=== PATIENT | female | born 1940 | race Caucasian/White ===

== ENCOUNTER 2021-11-06 17:28 | Observation (INO) | payer MEDICARE, SELFPAY ==
[2021-11-06 17:35] VITALS: BP 115/67; PULSE 114; RESP 18; TEMP 36.3; O2SAT 97; BMI 29.9
--- NOTE | 2021-11-06 18:11 | ED_ITS ---
HPI - General Adult General Chief complaint: Diarrhea Stated complaint: Weakness and diarrhea Time Seen by Provider: 11/06/21 17:52 Source: patient Limitations: no limitations History of Present Illness HPI narrative: 80-year-old female coming in today concerned about diarrhea. She states that she lives by herself however has been staying at a friend's house for the last couple days. She states that she started having diarrhea this last Wednesday, 2 days ago, and it has been nonstop. She states that she got weak today and has not even been able to get out of bed to make it to the bathroom. She states that she has spent the day soiling herself. She denies fevers or chills. No nausea or vomiting. She denies cough. She says she has some abdominal cramping but no significant pain. She denies any blood in her stool. She denies any increased urinary frequency or urgency. States that she has been able to get much food today because she has been able to get out of bed and has not really been drinking lot of water although she does feel thirsty. She denies any recent antibiotic use. Related Data Home Medications Medication Instructions Recorded Confirmed Spiriva with HandiHaler 11/06/21 alendronate 11/06/21 atorvastatin 11/06/21 bupropion HCl 11/06/21 losartan 11/06/21 trazodone 11/06/21 venlafaxine 11/06/21 [facility] Social History Smoking Status: Never smoker Do you use any of these nicotine containing products: None Second hand tobacco smoke exposure: No How often do you have a drink containing alcohol: never How often do you have six or more drinks on one occasion: Never AUDIT-C Alcohol total score: 0 Non-prescribed substance use: denies use Exam Const: Vital Signs, click to edit/add: Vital Signs - 24 hr 11/06/21 17:35 Temperature 97.4 F L Pulse Rate [Right Pulse Oximeter] 114 H Respiratory Rate 18 Blood Pressure [Ri ght Forearm] 115/67 Pulse Oximetry 97 Oxygen Delivery Me thod Room Air Course Course Hospital Course: Patient received 500 mL normal saline in the ambulance. We started another 500 mL while she was here. Labs were drawn. EKG was done, no significant ST changes. She did not have diarrhea while she was in the ED today. Vital Signs Vital signs: Initial Vital Signs Temperature 97.4 F L 11/06/21 17:35 Temperature Source Temporal Artery Scan 11/06/21 17:35 Pulse Rate 114 H 11/06/21 17:35 Respiratory Rate 18 11/06/21 17:35 Blood Pressure 115/67 11/06/21 17:35 Blood Pressure Mean 83 11/06/21 17:35 Blood Pressure Position Sitting 11/06/21 17:35 Pulse Oximetry 97 11/06/21 17:35 Oxygen Delivery Method 11/06/21 17:35 Vital Signs Temperature 97.4 F L 11/06/21 17:35 Pulse Rate 114 H 11/06/21 17:35 Respiratory Rate 18 11/06/21 17:35 Blood Pressure 115/67 11/06/21 17:35 Pulse Oximetry 97 11/06/21 17:35 Oxygen Delivery Method 11/06/21 17:35 Temperature 97.4 F L 11/06/21 17:35 Pulse Rate 114 H 11/06/21 17:35 Respiratory Rate 18 11/06/21 17:35 Blood Pressure 115/67 11/06/21 17:35 Pulse Oximetry 97 11/06/21 17:35 Oxygen Delivery Method 11/06/21 17:35 Medical Decision Making MDM Narrative Medical decision making narrative: 80-year-old female with 2 days of diarrhea, inability to get up and take care herself, acute renal failure. Patient will be admitted for further management. Lab Data Lab results reviewed: Yes I reviewed the patient's lab results Labs: Lab Results 11/06/21 11/06/21 11/06/21 Range/Units 18:32 18:32 18:32 WBC 9.83 (4.50-11.00) K/uL RBC 4.50 (4.00-5.20) m/uL Hgb 13.9 (12.0-16.0) gm/dL Hct 42.0 (33.0-51.0) % MCV 93 (80-100) fL MCH 31 (26-34) pg MCHC 33 (32-36) gm/dL RDW Coeff of Ariel 15.0 (11.5-15.5) % Plt Count 210 (140-440) K/uL Neut % (Auto) 83.0 H (42.0-72.0) % Lymph % (Auto) 5.9 L (20-44) % Phillips % (Auto) 10.3 (0.0-11.0) % Eos % (Auto) 0.3 (0.0-7.0) % Baso % (Auto) 0.1 (0.0-3.0) % Neut # (Auto) 8.20 H (1.7-7.0) K/uL Lymph # (Auto) 0.60 L (0.90-2.90) K/uL Phillips # (Auto) 1.00 H (0.00-0.90) K/UL Eos # (Auto) 0.03 (0.00-0.50) K/uL Baso # (Auto) 0.01 (0.00-0.30) K/uL Abs Immat Gran (auto) 0.04 (0.00-0.30) K/uL Sodium 138 (135-149) mmol/L Potassium 4.1 (3.6-5.1) mmol/L Chloride 106 (96-114) mmol/L Carbon Dioxide 17 L (20-32) mmol/L BUN 68 H (7-30) mg/dL Creatinine 1.8 H (0.5-1.5) mg/dL Estimated Creat Clear 22.95 Estimated GFR 28 ml/min Glucose 134 H (60-115) mg/dL Lactate 1.7 (0.5-1.9) mmol/L Calcium 7.3 L (8.4-10.6) mg/dL Total Bilirubin 0.8 (0.1-1.5) mg/dL Direct Bilirubin 0.5 (0.0-0.5) mg/dL AST 34 (12-35) U/L ALT 24 (4-35) U/L Alkaline Phosphatase 93 (40-150) U/L Troponin I < 0.01 L (0.01-0.04) ng/mL C-Reactive Protein 17.0 H (0.5-1.0) mg/dL Total Protein 6.5 (6.0-8.3) g/dL Albumin 3.6 (3.3-5.0) g/dL Ethyl Alcohol < 0.01 L (0.01-0.03) % 11/06/21 Range/Units 18:32 WBC (4.50-11.00) K/uL RBC (4.00-5.20) m/uL Hgb (12.0-16.0) gm/dL Hct (33.0-51.0) % MCV (80-100) fL MCH (26-34) pg MCHC (32-36) gm/dL RDW Coeff of Ariel (11.5-15.5) % Plt Count (140-440) K/uL Neut % (Auto) (42.0-72.0) % Lymph % (Auto) (20-44) % Phillips % (Auto) (0.0-11.0) % Eos % (Auto) (0.0-7.0) % Baso % (Auto) (0.0-3.0) % Neut # (Auto) (1.7-7.0) K/uL Lymph # (Auto) (0.90-2.90) K/uL Phillips # (Auto) (0.00-0.90) K/UL Eos # (Auto) (0.00-0.50) K/uL Baso # (Auto) (0.00-0.30) K/uL Abs Immat Gran (auto) (0.00-0.30) K/uL Sodium (135-149) mmol/L Potassium (3.6-5.1) mmol/L Chloride (96-114) mmol/L Carbon Dioxide (20-32) mmol/L BUN (7-30) mg/dL Creatinine (0.5-1.5) mg/dL Estimated Creat Clear Estimated GFR ml/min Glucose (60-115) mg/dL Lactate (0.5-1.9) mmol/L Calcium (8.4-10.6) mg/dL Total Bilirubin (0.1-1.5) mg/dL Direct Bilirubin (0.0-0.5) mg/dL AST (12-35) U/L ALT (4-35) U/L Alkaline Phosphatase (40-150) U/L Troponin I Cancelled (0.01-0.04) ng/mL C-Reactive Protein (0.5-1.0) mg/dL Total Protein (6.0-8.3) g/dL Albumin (3.3-5.0) g/dL Ethyl Alcohol (0.01-0.03) % ECG Data Attestation: I personally reviewed and interpreted this ECG as follows: (Sinus tachycardia, pulse of 102) Discharge Plan Discharge Clinical Impression: Acute renal failure, Weakness Patient Disposition: Admitted As Inpatient Condition: Stable Prescriptions: No Action atorvastatin bupropion HCl trazodone venlafaxine alendronate Spiriva with HandiHaler losartan
[2021-11-06 18:43] LABS: Basophils Absolute Auto 0.01 K/uL (0.00-0.30); Basophils Percent Auto 0.1 % (0.0-3.0); Eosinophils Absolute Auto 0.03 K/uL (0.00-0.50); Eosinophils Percent Auto 0.3 % (0.0-7.0); Hemoglobin* 13.9 gm/dL (12.0-16.0); Immature Granulocytes Abs Auto 0.04 K/uL (0.00-0.30); Lactate* 1.7 mmol/L (0.5-1.9); Lymphocytes Percent Auto 5.9 % (20-44); Mean Corpuscular HGB Conc 33 gm/dL (32-36); Mean Corpuscular Hemoglobin 31 pg (26-34); Mean Corpuscular Volume 93 fL (80-100); Monocytes Percent Auto 10.3 % (0.0-11.0); Platelet Count* 210 K/uL (140-440); White Blood Count* 9.83 K/uL (4.50-11.00)
[2021-11-06 18:46] LABS: Slide Review Reflex No
[2021-11-06] MEDS: 0.9 % SODIUM CHLORIDE 500 ML 500 ML IV (18:50)
[2021-11-06 19:05] LABS: Albumin* 3.6 g/dL (3.3-5.0); Chloride* 106 mmol/L (96-114)
[2021-11-06 19:06] LABS: Potassium* 4.1 mmol/L (3.6-5.1); Sodium* 138 mmol/L (135-149)
[2021-11-06 19:08] LABS: Creatinine* 1.8 mg/dL (0.5-1.5); Est. Creatinine Clearance* 22.95; Estimated Glomerular Filt Rate 28 ml/min
[2021-11-06 19:09] LABS: Alanine Aminotransferase* 24 U/L (4-35); Alkaline Phosphatase* 93 U/L (40-150); Aspartate Amino Transferase* 34 U/L (12-35); Bilirubin Direct* 0.5 mg/dL (0.0-0.5); Bilirubin Total* 0.8 mg/dL (0.1-1.5); Blood Urea Nitrogen* 68 mg/dL (7-30); Calcium* 7.3 mg/dL (8.4-10.6); Carbon Dioxide* 17 mmol/L (20-32); Glucose* 134 mg/dL (60-115); Total Protein* 6.5 g/dL (6.0-8.3)
[2021-11-06 19:14] LABS: Ethanol* < 0.01 % (0.01-0.03)
[2021-11-06 19:22] LABS: Troponin I* < 0.01 ng/mL (0.01-0.04)
--- NOTE | 2021-11-06 19:54 | CRLHL7_ITS ---
For Patients: As a result of the Century Cures Act, medical imaging exams and procedure reports are released immediately into your electronic medical record. You may view this report before your referring provider. If you have questions, please contact your health care provider. INDICATION: Diarrhea. TECHNIQUE: CT abdomen and pelvis without contrast. COMPARISON: None. FINDINGS: Lower chest: Unremarkable. Liver: Normal in size and attenuation. No suspicious masses. Gallbladder and bile ducts: Absent. No significant intra or extrahepatic biliary ductal dilatation identified. Pancreas: Unremarkable. No mass or inflammation. Spleen: Normal in size. No masses. Adrenal glands: Normal in size. No nodules. Kidneys: Normal in size. No suspicious masses, stones, or hydronephrosis. GI tract: Mild thickening along the large bowel with adjacent areas of mild mesenteric fat stranding. Appendix is not well visualized. Small hiatal hernia. Vasculature: Abdominal aorta is normal in caliber. Aorto bi-iliac stents are noted. Calcific atherosclerosis and to a moderate to severe degree in the distal aorta and its major branches. Lymph nodes: No lymphadenopathy. Peritoneum/Abdominal Wall: Probable postsurgical changes in the anterior abdominal wall. There is a loop of small bowel closely apposed to the anterior abdominal wall may be related to adhesions. Focal calcifications in the anterior abdominal wall (2/45), likely posttraumatic or post operative. No sign of mass or infiltration. No free air or significant free fluid. Pelvis: Prior hysterectomy. No pelvic masses. Bones: Demineralization of visualized bones. Multilevel degenerative changes. IMPRESSION: Diffuse mild wall thickening in the large bowel with adjacent areas of mild mesenteric fat stranding suggestive of infectious/inflammatory colitis. Ischemia could appear similar although felt to be less likely. Please note that all CT scans at this facility use dose modulation, iterative reconstruction, and/or weight-based dosing when appropriate to reduce radiation dose to as low as reasonably achievable. Dictated by Gaetano Llamas MD @ 11/06/2021 8:50:32 PM (Electronically Signed)
[2021-11-06 20:17] LABS: Erythrocyte SedimentationRate* 52 mm/hr (2-20)
--- NOTE | 2021-11-06 20:19 | P.IMHP_ITS ---
Hospitalist- H&P: HPI History of Present Illness Date Seen: 11/06/21 Chief complaint: Weakness and diarrhea Narrative: ADMISSION HISTORY AND PHYSICAL - HOSPITALIST Chief Complaint: Diarrhea came on intense, I am so weak HPI: 80-year-old with a complex medical history to include CAD, COPD presents via EMS from her friend's house near [place] secondary to explosive diarrhea and weakness. She states about 48 hours ago she started having which she thought was IBS/loose stools. She has had this progressed and she became very weak. She is having some mild left lower quadrant cramping. She does not think she has been febrile. She has had no appetite. She has only vomited once. In the ED she was coherent. Mildly tachy. No fever. She was caked in stool and mildly unkept. She was started on fluids and noted to have an ALLISON on her baseline CKD. Hospital medicine team was called for evaluation. PAST MEDICAL HISTORY: Hypertension CAD - last echo showed normal global systolic function with EF of 60-65%. Mitral valve disease, mild. 3.6 cm AAA. COPD, severe Dyslipidemia Untreated MAKI Non ST-elevation OK with multi-vessel stenting June 2016. EMMETT to mid LAD, EMMETT x2 to mid circumflex, EMMETT to proximal RCA, EMMETT to mid RCA. Balloon only to distal RCA due to tortuosity. History of acute systolic heart failure Severe mitral regurg Chronic kidney disease Diabetes mellitus History of orthostatics syncope with cardiac meds being titrated History of COVID-19 pneumonia with hypoxia in March of 2021 MEDICATIONS: Lipitor 80 mg at bedtime Losartan 50 mg q.a.m. Metoprolol XL 25 mg daily Nitro 0.4 p.r.n. sublingually ALLERGIES: Lisinopril Omeprazole Simvastatin Heparin - cause hematuria SURGICAL HISTORY: GILBERT/BSO Tonsils and adenoids cataract removal AAA repair FAMILY HISTORY: Reviewed in EMR HABITS/SOCIAL HISTORY: Former heavy smoker, 2 packs a day until the mid . 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 No adult children. Has a friend who lives near [place]. Otherwise she is from [place]. INVESTIGATIONS: LABS/MICRO/ECG/IMAGING Afebrile Blood pressure 115/67 Pulse 114 Respiratory rate 18 satting 97% on room air CBC is unremarkable. Creatinine is 1.8, BUN 68. In August it was 1.53 with a BUN of 39 Mildly acidotic with a CO2 of 17. Normal sodium. Normal potassium. Glucose 134 Lactate 1.7 Calcium 7.3 Normal LFTs Troponin undetectable CRP 17 Alcohol undetectable Respiratory swab negative Abdominal pelvic CT: IMPRESSION: Diffuse mild wall thickening in the large bowel with adjacent areas of mild mesenteric fat stranding suggestive of infectious/inflammatory colitis. Ischemia could appear similar although felt to be less likely. REVIEW OF SYSTEMS: 12-point ROS completed with patient and negative unless otherwise stated in HPI or below. PHYSICAL EXAM: CODE STATUS: FULL CODE CONSTITUTIONAL: Conversive, good historian. A/O. Knows setting and context. SHE LOOKS WEAK BUT NOT SEPTIC. VITAL SIGNS: see record. HEENT: Normocephalic, atraumatic. PERRL, EOMI, conjunctivae pink, no scleral icterus. Ears and nose externally normal. Pharynx normal. NECK: No JVD. No carotid bruit, no thyromegaly, no adenopathy. CHEST: Clear to auscultation bilaterally HEART: S1 and S2 normal. No harsh murmurs. Abdominal exam: Soft. Mildly tender in left lower quadrant. MUSCULOSKELETAL: No gross joint deformity or swelling. NEURO: Cranial nerves intact. Grossly intact. No asymmetric findings. SKIN: No rashes, petechiae, concerning changes PSYCHIATRIC: Euthymic. ADMIT DVT: Lovenox GI: PO intake, ppi Time spent: 70 minutes examining patient, conferring with family and patient, care staff, developing care plan [facility] Medical History (Updated 11/06/21 @ 22:07 by Yahaira Smith MD) CAD (coronary artery disease) Cataract Chronic kidney disease COPD (chronic obstructive pulmonary disease) Hypertension Macular degeneration MAKI (obstructive sleep apnea) Surgical History (Updated 11/06/21 @ 20:48 by Yahaira Smith MD) History of AAA (abdominal aortic aneurysm) repair History of abdominal hysterectomy History of tonsillectomy and adenoidectomy Social History Highest level of school completed/degree received: decline to answer Smoking Status: Former smoker Do you use any of these nicotine containing products: None Nicotine containing products detail: quit 30 years ago Second hand tobacco smoke exposure: No How often do you have a drink containing alcohol: monthly or less How often do you have six or more drinks on one occasion: Never AUDIT-C Alcohol total score: 1 Non-prescribed substance use: denies use Caffeine: Yes (1 16oz pop per day) service: No Meds Home Medications and Allergies Home Medications Medication Instructions Recorded Confirmed Type Spiriva with HandiHaler 11/06/21 History alendronate 11/06/21 History atorvastatin 11/06/21 History bupropion HCl 11/06/21 History losartan 11/06/21 History trazodone 11/06/21 History venlafaxine 11/06/21 History Allergies Allergy/AdvReac Type Severity Reaction Status Date / Time Heparinoids Allergy Mild Hematuria Uncoded 11/06/21 21:01 Simvastatin Allergy Mild Nausea Uncoded 11/06/21 21:01 Lisinopril Allergy Cough Uncoded 11/06/21 21:01 Omeprazole Allergy Diarrhea Uncoded 11/06/21 21:01 Exam Const: Vital Signs, click to edit/add: Vital Signs - 24 hr 11/06/21 17:35 Temperature 97.4 F L Pulse Rate [Right Pulse Oximeter] 114 H Respiratory Rate 18 Blood Pressure [Ri ght Forearm] 115/67 Pulse Oximetry 97 Oxygen Delivery Me thod Room Air Hospitalist - H&P: Result Labs Labs: Short CBC 11/06/21 Range/Units 18:32 WBC 9.83 (4.50-11.00) K/uL Hgb 13.9 (12.0-16.0) gm/dL Hct 42.0 (33.0-51.0) % Plt Count 210 (140-440) K/uL BMP 11/06/21 18:32 Sodium 138 Potassium 4.1 Chloride 106 Carbon Dioxide 17 L BUN 68 H Creatinine 1.8 H Glucose 134 H Calcium 7.3 L Cardiac Enzymes 11/06/21 11/06/21 Range/Units 18:32 18:32 Troponin I < 0.01 L Cancelled (0.01-0.04) ng/mL Liver Function 11/06/21 Range/Units 18:32 Total Bilirubin 0.8 (0.1-1.5) mg/dL Direct Bilirubin 0.5 (0.0-0.5) mg/dL AST 34 (12-35) U/L ALT 24 (4-35) U/L Alkaline Phosphatase 93 (40-150) U/L Albumin 3.6 (3.3-5.0) g/dL Assessment and Plan Assessment and plan (1) Acute gastroenteritis: Status: Acute Assessment and Plan: Incontinent of explosive diarrhea. C diff pending. Stool viral and bacterial cultures pending. CT abdomen shows enteritis. Lactate normal. Elevated creatinine from baseline. Will give fluids and observe. ertapenem; solumedrol. (2) ALLISON (acute kidney injury): Status: Acute Assessment and Plan: 1.8 tonight. 1.5 is her baseline. I will check a magnesium but other electrolytes seem to be in line. (3) CAD (coronary artery disease): Status: Acute Assessment and Plan: Significant multi-vessel disease. Troponin negative. Will put her on tele and continue to monitor. (4) Chronic kidney disease: Status: Acute Assessment and Plan: Secondary to chronic hypertension. (5) COPD (chronic obstructive pulmonary disease): Status: Acute Assessment and Plan: Distant smoking but heavy for the years that she did smoke. Continue to follow. (6) Hypertension: Status: Acute Assessment and Plan: Be careful with her meds that she is on the low side but not hypotensive. (7) MAKI (obstructive sleep apnea): Status: Acute Assessment and Plan: Untreated. We will carefully monitor her oxygen needs. (8) Macular degeneration: Status: Acute
[2021-11-06 20:47] LABS: PCR FLU A Negative PCR FLU A (Negative); PCR FLU B Negative PCR FLU B (Negative)
--- NOTE | 2021-11-06 20:53 | ED.NURSE ---
Per , okay to hold off on UA d/t pt being soiled w/ stool. Ruthie-care performed w/ wipes and wet wash cloths. Stool observed on pt's feet, legs, and forehead. Per pt, she has been in bed for two days and unable to get around. Is normally independent and ambulatory at baseline.
[2021-11-06 21:00] VITALS: BP 112/77; PULSE 119; RESP 20; O2SAT 94
[2021-11-06 21:31] LABS: Magnesium* 2.8 mg/dL (1.5-2.6)
[2021-11-06 21:49] LABS: Appearance Urine Cloudy (Clear); Bilirubin Urine Negative (Negative); Blood Urine 2+ (Negative); Color Urine Brown (Yellow); Glucose Urine Negative (Negative); Ketones Urine 1+ (Negative); Leukocyte Esterase Urine Trace (Negative); Nitrite Urine Negative (Negative); Protein Urine 3+ (Negative); Specific Gravity Urine 1.015 (1.000-1.030); pH Urine 8.5 (5.0-8.5)
[2021-11-06 21:52] VITALS: BP 105/62; PULSE 109; RESP 18; TEMP 36.5; O2SAT 91; O2SAT 92; BMI 28.6
[2021-11-06 21:58] LABS: Amorphous Sediment Urine Moderate; Bacteria Urine Moderate; Squamous Epithelial Cell Urine Moderate (None-Few)
[2021-11-06 23:00] VITALS: BP 135/63; PULSE 101; RESP 20; TEMP 36.6; O2SAT 99
[2021-11-06 23:16] LABS: SARS PCR* Negative SARS-CoV-2 (Negative)
[2021-11-06] MEDS: 0.9 % SODIUM CHLORIDE 1000 ml 1,000 ML 100 ML IV (23:24)
[2021-11-06] MEDS: METHYLPREDNISOLONE SOD SUCC 62.5 MG/ML (125) 125 MG IVP (23:25)
[2021-11-06] MEDS: ENOXAPARIN 30 MG/0.3ML INJ SUBCUT (23:25)
[2021-11-06] MEDS: PANTOPRAZOLE SODIUM 40 MG INJ IVP (23:25)
[2021-11-07] VITALS (9 sets, daily range): BP systolic 129–161; BP diastolic 63–92; PULSE 97–108; RESP 16–20; TEMP 36.4–36.8; O2SAT 97–98
[2021-11-07] MEDS: MELATONIN 3 MG TABLET PO (01:27)
--- NOTE | 2021-11-07 06:45 | PC.NURSE ---
Shift note: Pt denies pain, is afebrile. Turn and reposition in bed, pt is incontinent of stool and bladder, had 1 BM in the last 12 hours. She uses call light appropriately.
[2021-11-07 07:07] LABS: C.Difficile Negative (Negative); CDIFFEPI 027 PRESUMPTIVE NEGATIVE (Negative)
[2021-11-07] MEDS: buPROPion XL 150 MG TABLET PO (09:26)
--- NOTE | 2021-11-07 13:16 | P.IMPN_ITS ---
Progress Note: A&P Assessment and plan (1) Enteritis: Status: Acute Assessment and Plan: She is afebrile. I have reviewed the CT abdomen and pelvis results. Diarrhea improving. Remains mildly tender in the left lower quadrant. C diff negative. Stop antibiotics and Solu-Medrol. May be able to discharge tomorrow as weakness and ALLISON resolve. (2) ALLISON (acute kidney injury): Problem details: Secondary to dehydration Status: Acute Assessment and Plan: Drinking fluids and urine output has increased. Stop IV fluids. Recheck basic metabolic panel in morning. (3) Weakness: Status: Acute Assessment and Plan: Continue PT and OT. Expect this will improve as dehydration improves. (4) CAD (coronary artery disease): Status: Chronic Assessment and Plan: Asymptomatic. (5) Chronic kidney disease: Status: Chronic (6) COPD (chronic obstructive pulmonary disease): Status: Chronic (7) Hypertension: Status: Chronic (8) MAKI (obstructive sleep apnea): Status: Chronic Subjective Time Seen by Provider: 13:15 Date Seen: 11/07/21 Interval history: Gladys's nurse tells me Gladys has had fewer BMs today. Gladys notes she is less painful in the LLQ, but doesn't feel back to normal yet. Exam Narrative: Exam Narrative: General: No acute distress. Awake, alert, oriented x3. No pallor. No jaundice. Oropharynx: Clear. Mucous membranes moist. Cardiovascular: Regular rate and rhythm. No murmurs, gallops, or rubs. Respiratory: Clear to auscultation bilaterally. No wheezes or crackles. Abdomen: Bowel sounds present. Soft, nondistended, mildly tender in left lower quadrant, no rebound tenderness or guarding. Extremities: No pedal edema. Const: Vital Signs, click to edit/add: Vital Signs - 24 hr 11/06/21 17:35 11/06/21 21:00 11/06/21 21:52 Temperature 97.4 F L 97.7 F Pulse Rate Pulse Rate [Right Pulse Oximeter] 114 H 119 H 109 H Respiratory Rate 18 20 18 Blood Pressure [Le ft Arm] Blood Pressure [Ri ght Arm] 105/62 Blood Pressure [Ri ght Forearm] 115/67 112/77 Pulse Oximetry 97 94 91 Oxygen Delivery Me thod Room Air Room Air Room Air 11/06/21 21:52 11/06/21 21:52 11/06/21 23:00 Temperature 97.7 F Pulse Rate Pulse Rate [Right Pulse Oximeter] 109 H Respiratory Rate 18 Blood Pressure [Le ft Arm] Blood Pressure [Ri ght Arm] 105/62 Blood Pressure [Ri ght Forearm] Pulse Oximetry 92 91 99 Oxygen Delivery Me thod Room Air Room Air Room Air 11/06/21 23:00 11/07/21 02:19 11/07/21 03:00 Temperature 98 F 98.2 F Pulse Rate 97 Pulse Rate [Right Pulse Oximeter] 101 H 104 H Respiratory Rate 20 18 Blood Pressure [Le ft Arm] Blood Pressure [Ri ght Arm] 135/63 131/63 Blood Pressure [Ri ght Forearm] Pulse Oximetry [address] thod Room Air Room Air 11/07/21 07:00 11/07/21 09:51 11/07/21 11:00 Temperature 97.8 F Pulse Rate 103 H Pulse Rate [Right Pulse Oximeter] 102 H 98 Respiratory Rate 18 20 Blood Pressure [Le ft Arm] 135/92 H 148/64 H Blood Pressure [Ri ght Arm] 135/92 H Blood Pressure [Ri ght Forearm] Pulse Oximetry [address] thod Room Air Room Air Labs Labs: Laboratory Results - last 24 hr 11/06/21 11/06/21 11/06/21 18:32 18:32 18:32 WBC 9.83 RBC 4.50 Hgb 13.9 Hct 42.0 MCV 93 MCH 31 MCHC 33 RDW Coeff of Ariel 15.0 Plt Count 210 Neut % (Auto) 83.0 H Lymph % (Auto) 5.9 L [place] % (Auto) 10.3 Eos % (Auto) 0.3 Baso % (Auto) 0.1 Neut # (Auto) 8.20 H Lymph # (Auto) 0.60 L [place] # (Auto) 1.00 H Eos # (Auto) 0.03 Baso # (Auto) 0.01 Abs Immat Gran (auto) 0.04 ESR 52 H Sodium 138 Potassium 4.1 Chloride 106 Carbon Dioxide 17 L BUN 68 H Creatinine 1.8 H Estimated Creat Clear 22.95 Estimated GFR 28 Glucose 134 H Lactate Calcium 7.3 L Magnesium Total Bilirubin 0.8 Direct Bilirubin 0.5 AST 34 ALT 24 Alkaline Phosphatase 93 Troponin I < 0.01 L C-Reactive Protein 17.0 H Total Protein 6.5 Albumin 3.6 Urine Color Urine Appearance Urine pH Ur Specific [place] Urine Protein Urine Glucose (UA) Urine Ketones Urine Blood Urine Nitrite Urine Bilirubin Urine Urobilinogen Ur Leukocyte Esterase Urine RBC Urine WBC Ur Squamous Epith Cells Amorphous Sediment Urine Bacteria Stl C.difficile Tox PCR Ethyl Alcohol < 0.[address] C. diff Tox Epid 027 SARS-CoV-2 (PCR) Influenza Type A (PCR) Influenza Type B (PCR) 11/06/21 11/06/21 11/06/21 18:32 18:32 18:32 WBC RBC Hgb Hct MCV MCH MCHC RDW Coeff of Ariel Plt Count Neut % (Auto) Lymph % (Auto) [place] % (Auto) Eos % (Auto) Baso % (Auto) Neut # (Auto) Lymph # (Auto) [place] # (Auto) Eos # (Auto) Baso # (Auto) Abs Immat Gran (auto) ESR Sodium Potassium Chloride Carbon Dioxide BUN Creatinine Estimated Creat Clear Estimated GFR Glucose Lactate 1.7 Calcium Magnesium Total Bilirubin Direct Bilirubin AST ALT Alkaline Phosphatase Troponin I Cancelled C-Reactive Protein Total Protein Albumin Urine Color Urine Appearance Urine pH Ur Specific [place] Urine Protein Urine Glucose (UA) Urine Ketones Urine Blood Urine Nitrite Urine Bilirubin Urine Urobilinogen Ur Leukocyte Esterase Urine RBC Urine WBC Ur Squamous Epith Cells Amorphous Sediment Urine Bacteria Stl C.difficile Tox PCR Ethyl Alcohol St C. diff Tox Epid 027 SARS-CoV-2 (PCR) Negative SARS-CoV-2 Influenza Type A (PCR) Negative PCR FLU A Influenza Type B (PCR) Negative PCR FLU B 11/06/21 11/06/21 11/07/21 18:32 21:40 06:00 WBC RBC Hgb Hct MCV MCH MCHC RDW Coeff of Ariel Plt Count Neut % (Auto) Lymph % (Auto) [place] % (Auto) Eos % (Auto) Baso % (Auto) Neut # (Auto) Lymph # (Auto) [place] # (Auto) Eos # (Auto) Baso # (Auto) Abs Immat Gran (auto) ESR Sodium Potassium Chloride Carbon Dioxide BUN Creatinine Estimated Creat Clear Estimated GFR Glucose Lactate Calcium Magnesium 2.8 H Total Bilirubin Direct Bilirubin AST ALT Alkaline Phosphatase Troponin I C-Reactive Protein Total Protein Albumin Urine Color Brown A Urine Appearance Cloudy A Urine pH 8.5 Ur Specific [place] 1.015 Urine Protein 3+ A Urine Glucose (UA) Negative Urine Ketones 1+ A Urine Blood 2+ A Urine Nitrite Negative Urine Bilirubin Negative Urine Urobilinogen 1.0 Ur Leukocyte Esterase Trace A Urine RBC 5-10 A Urine WBC 2-5 Ur Squamous Epith Cells Moderate A Amorphous Sediment Moderate A Urine Bacteria Moderate A Stl C.difficile Tox PCR Negative Ethyl Alcohol St C. diff Tox Epid 027 PRESUMPTIVE NEGATIVE SARS-CoV-2 (PCR) Influenza Type A (PCR) Influenza Type B (PCR) Afternoon labs done around 13:30 today: Sodium 136, potassium 4.1, chloride 109, carbon dioxide 16, BUN 50, creatinine 1.2. Imaging CT scan - abdomen: Radiologist's impression: Ordering Physician: Yahaira Smith M.D. Date of Service: 11/06/21 Procedure(s): CT abdomen pelvis wo con Accession Number(s): [id number] cc: Yahaira Smith M.D.; Provider,Not a Local ~ For Patients: As a result of the Cures Act, medical imaging exams and procedure reports are released immediately into your electronic medical record. You may view this report before your referring provider. If you have questions, please contact your health care provider. INDICATION: Diarrhea. TECHNIQUE: CT abdomen and pelvis without contrast. COMPARISON: None. FINDINGS: Lower chest: Unremarkable. Liver: Normal in size and attenuation. No suspicious masses. Gallbladder and bile ducts: Absent. No significant intra or extrahepatic biliary ductal dilatation identified. Pancreas: Unremarkable. No mass or inflammation. Spleen: Normal in size. No masses. Adrenal glands: Normal in size. No nodules. Kidneys: Normal in size. No suspicious masses, stones, or hydronephrosis. GI tract: Mild thickening along the large bowel with adjacent areas of mild mesenteric fat stranding. Appendix is not well visualized. Small hiatal hernia. Vasculature: Abdominal aorta is normal in caliber. Aorto bi-iliac stents are noted. Calcific atherosclerosis and to a moderate to severe degree in the distal aorta and its major branches. Lymph nodes: No lymphadenopathy. Peritoneum/Abdominal Wall: Probable postsurgical changes in the anterior abdominal wall. There is a loop of small bowel closely apposed to the anterior abdominal wall may be related to adhesions. Focal calcifications in the anterior abdominal wall (2/45), likely posttraumatic or post operative. No sign of mass or infiltration. No free air or significant free fluid. Pelvis: Prior hysterectomy. No pelvic masses. Bones: Demineralization of visualized bones. Multilevel degenerative changes. IMPRESSION: Diffuse mild wall thickening in the large bowel with adjacent areas of mild mesenteric fat stranding suggestive of infectious/inflammatory colitis. Ischemia could appear similar although felt to be less likely. Please note that all CT scans at this facility use dose modulation, iterative reconstruction, and/or weight-based dosing when appropriate to reduce radiation dose to as low as reasonably achievable. Dictated by Gaetano Llamas MD @ 11/06/2021 8:50:32 PM (Electronically Signed)
[2021-11-07 13:56] LABS: Chloride* 109 mmol/L (96-114); Potassium* 4.1 mmol/L (3.6-5.1); Sodium* 136 mmol/L (135-149)
[2021-11-07 13:59] LABS: Blood Urea Nitrogen* 50 mg/dL (7-30); Carbon Dioxide* 16 mmol/L (20-32); Creatinine* 1.2 mg/dL (0.5-1.5); Est. Creatinine Clearance* 34.42; Estimated Glomerular Filt Rate 45 ml/min; Glucose* 171 mg/dL (60-115)
--- NOTE | 2021-11-07 14:44 | PC.NURSE ---
End of Shift Note: Patient has been alert and orientated today. She did sit up in the chair for breakfast but had lunch in bed. Did get her diet advance today and saline locked her IV. She is up with SBA does have a difficult time ambulating due to poor vision. Has been inc x1 of stool other has made it too the bathroom. Did collect a sample for a stool culture and sent to lab. Will continue to monitor unitl next shift.
[2021-11-07] MEDS: METOPROLOL SUCCINATE (XL) 50 MG TAB PO (20:37)
[2021-11-07] MEDS: BUDESONIDE 0.5 MG/2ML NEB NEB (20:38)
[2021-11-07] MEDS: PANTOPRAZOLE SODIUM 40 MG INJ IVP (20:38)
[2021-11-07] MEDS: SODIUM CHLORIDE 0.9 % (FLUSH) 10 ML SYRINGE 5 ML IVF (20:41)
--- NOTE | 2021-11-07 20:41 | PM.EN ---
Chart Event Note Time Seen by Provider: 20:41 Date Seen: 11/07/21 Chart Event Note: 80-year-old female admitted to the hospital for diarrhea with dehydration and metabolic acidosis has now developed atrial fibrillation with rapid ventricular response. She is asymptomatic with this. No chest pain or dyspnea. She however has just been in bed without any activity this evening. No previous history of atrial fibrillation. No previous history of bleeding or clotting problems. Her enteritis is better and she has been eating a normal diet this evening. Diarrhea is improved as well. She does have a history of coronary disease. I discussed the plan of care going forward. At this point will initiate rate control with increasing her metoprolol dose with parameters to hold metoprolol for hypotension or bradycardia. Going to initiate rivaroxaban renally dosed for stroke prophylaxis. Consider cardioversion tomorrow if she does not spontaneously convert back to sinus rhythm. NPO after midnight. Echocardiogram.
[2021-11-07 21:12] LABS: Magnesium* 2.9 mg/dL (1.5-2.6)
[2021-11-07] MEDS: METOPROLOL TARTRATE 1 MG/ML inj 5 MG IVP (21:12)
[2021-11-07] MEDS: RIVAROXABAN 10 MG TABLET 15 MG PO (21:19)
[2021-11-07] MEDS: METOPROLOL TARTRATE 25 MG TABLET PO (21:46)
[2021-11-07] MEDS: TRAZODONE HCL 50 MG TABLET PO (21:47)
--- NOTE | 2021-11-07 22:38 | PC.NURSE ---
Shift [id number]- Patient denies pain throughout shift. She is up with 4ww and SBA. Tele in place, showing NSR/Sinus tachycardia, but flips into A-fib this evening. MD notified- see orders. She is asymptomatic during this time. Appetite is intact. She has 2 loose stools this evening, and is occasionally incontinent. Mepilex to coccyx replaced, skin is intact.
[2021-11-08] VITALS (7 sets, daily range): BP systolic 122–150; BP diastolic 79–110; PULSE 80–103; RESP 16–20; TEMP 36.5–36.6; O2SAT 94–98
[2021-11-08] MEDS: METOPROLOL TARTRATE 25 MG TABLET PO ×2 (00:55→03:56)
[2021-11-08] MEDS: MELATONIN 3 MG TABLET PO (00:59)
--- NOTE | 2021-11-08 06:10 | PC.NURSE ---
SHIFT NOTE 23-07: Pt is A&O but forgetful. Incontinent of large amounts of urine and loose stool overnight. Tele reads a-fib 90's to low 100's, metoprolol given per eMAR. Pt denies pain, SOB, CP, and N/V.
[2021-11-08 07:06] LABS: Basophils Absolute Auto 0.01 K/uL (0.00-0.30); Basophils Percent Auto 0.1 % (0.0-3.0); Hemoglobin* 12.2 gm/dL (12.0-16.0); Immature Granulocytes Abs Auto 0.08 K/uL (0.00-0.30); Lymphocytes Percent Auto 8.7 % (20-44); Mean Corpuscular HGB Conc 33 gm/dL (32-36); Mean Corpuscular Hemoglobin 31 pg (26-34); Mean Corpuscular Volume 94 fL (80-100); Monocytes Percent Auto 9.9 % (0.0-11.0); Neutrophils Percent Auto 80.6 % (42.0-72.0); Platelet Count* 194 K/uL (140-440); Red Blood Count 3.95 m/uL (4.00-5.20); White Blood Count* 10.89 K/uL (4.50-11.00)
[2021-11-08 07:08] LABS: Slide Review Reflex No
[2021-11-08 07:23] LABS: Chloride* 112 mmol/L (96-114); Potassium* 4.5 mmol/L (3.6-5.1); Sodium* 140 mmol/L (135-149)
[2021-11-08 07:26] LABS: Carbon Dioxide* 19 mmol/L (20-32); Creatinine* 1.3 mg/dL (0.5-1.5); Est. Creatinine Clearance* 31.77; Estimated Glomerular Filt Rate 41 ml/min
[2021-11-08 07:27] LABS: Blood Urea Nitrogen* 47 mg/dL (7-30); Calcium* 7.7 mg/dL (8.4-10.6); Glucose* 158 mg/dL (60-115)
[2021-11-08 07:36] LABS: Troponin I* 0.01 ng/mL (0.01-0.04)
--- NOTE | 2021-11-08 09:31 | PC.NURSE ---
Cardioversion for A. Fib completed this AM per Dr. Phipps with BROWN Sher and Kasey RT present. See AVIONICS REPAIR TECHNICIAN's documentation for medication record and RT's documentation for respiratory support provided. 0844 - BP 154/106, HR 84 0849 - Time Out 0849 - Sedation administered 0850 - BP 147/78, HR 71 0850 - 120 J synchronized shock delivered; pt. converted from A. Fib to NSR 0855 - EKG completed 0857 - BP 107/69, HR 69 0903 - BP 107/60, HR 70 0908 - BP 108/70, HR 72
[2021-11-08] MEDS: METOPROLOL SUCCINATE (XL) 50 MG TAB 100 MG PO (10:19)
[2021-11-08] MEDS: VENLAFAXINE ER 75 MG CAPSULE 150 MG PO (10:21)
[2021-11-08] MEDS: buPROPion XL 150 MG TABLET PO (10:22)
[2021-11-08] MEDS: OMEPRAZOLE 20 MG CAPSULE DR 40 MG PO (10:22)
[2021-11-08] MEDS: BUDESONIDE 0.5 MG/2ML NEB NEB (10:23)
[2021-11-08] MEDS: LACTATED RINGERS 1000 ML 1,000 ML 125 ML IV (10:24)
[2021-11-08] MEDS: SODIUM CHLORIDE 0.9 % (FLUSH) 10 ML SYRINGE 5 ML IVF (10:30)
--- NOTE | 2021-11-08 10:54 | REH.OT ---
Initiated OT session which was interrupted by cardioversion. Offered OT / PT following cardioversion, pt declined, nsg recommended therapy hold until tomorrow.
--- NOTE | 2021-11-08 13:05 | PM.EN ---
Chart Event Note Date Seen: 11/08/21 Chart Event Note: Patient continues in atrial fibrillation today. She has achieved rate control overnight and has tolerated her atrial fibrillation fairly well. I reviewed with her a plan for rate versus rhythm control going forward. After discussion of risks benefits and alternatives she elects to undergo electrical cardioversion for rhythm control of her atrial fibrillation. Risks benefits and alternatives discussed. She gives written and verbal agreement. Also discussed risks and benefits of anesthesia for sedation. VIBRATION ANALYST and respiratory therapy are present for providing deep sedation and airway monitoring. Time-out was taken prior to administration of anesthesia to confirm the correct patient and correct procedure. Patient received propofol 60 mg IV. With this she gets excellent sedation. One hundred twenty joules of biphasic energy is used for successful cardioversion. She did not require any assistance with breathing but did require jaw positioning to maintain her airway until she awoke. There were no complications.
--- NOTE | 2021-11-08 13:10 | P.DS_ITS ---
DS: Providers Provider Date Seen: 11/08/21 Date of admission: 11/06/21 20:52 Primary care physician: Not a Local Provider Admitting Clinician: Yahaira Smith MD Attending Physician on discharge: Yahaira Smith MD Date of Discharge: 11/08/21 DS: Diagnosis Discharge Diagnosis (1) Enteritis: Status: Acute Problem details: Patient had severe diarrhea leading to dehydration and metabolic acidosis at the time of admission. Managed with IV fluids and improvement in acute kidney injury and metabolic acidosis. Her friend tells me today that this has been a somewhat recurrent problem for her. As her symptoms have resolved we did not do any further investigation into causes of chronic recurrent diarrhea (2) Atrial fibrillation with rapid ventricular response: Status: Acute Problem details: Patient reports no previous history of atrial fibrillation. She had onset of atrial fibrillation last evening. She had rapid ventricular response. This was controlled with metoprolol. This morning she underwent electrical cardioversion to sinus rhythm. Echocardiogram has not been done on this admission. Recommend outpatient echocardiogram in followup with primary care provider (3) ALLISON (acute kidney injury): Status: Acute Problem details: Secondary to dehydration from severe diarrhea. Resolved. (4) Metabolic acidosis: Status: Acute Problem details: Due to severe diarrhea. Now resolved. DS: Summary Hospital Course Hospital Course: 80-year-old female admitted to the hospital with profound weakness due to abdominal pain with severe diarrhea. She was found to have acute kidney injury with metabolic acidosis. CT scan of her abdomen pelvis showed findings consistent with enteritis. She was treated conservatively with IV fluids and her symptoms largely resolved over the subsequent 2 days. According to her friend this was a recurrent problem. She does not know the cause of her recurrent bouts of diarrhea. The evening before discharge she did go into atrial fibrillation with rapid ventricular response. This was managed with rate control with metoprolol overnight and today she underwent successful cardioversion to manage her heart rhythm. Status at Discharge Functional status at discharge: independent ambulation Overall status at discharge: patient is back to baseline Time Spent with Patient Time attestation: Total time spent providing and/or coordinating discharge services: 40 minutes Time spent: Greater than 30 minutes Exam Narrative: Exam Narrative: She is alert and appears in no distress. Speech is normal. Respirations are clear to auscultation. Cardiovascular: S1, S2, irregularly irregular. No murmur gallop or rub. Abdomen: Bowel sounds active. Abdomen is soft without tenderness or mass. Extremities with trace edema. Const: Vital Signs, click to edit/add: Vital Signs - 24 hr 11/07/21 15:10 11/07/21 15:33 11/07/21 19:14 Temperature 98.1 F 97.7 F Pulse Rate 100 Pulse Rate [Right Pulse Oximeter] 105 H 108 H Respiratory Rate 16 16 Blood Pressure [Le ft Arm] 154/88 H 161/85 H Pulse Oximetry 98 98 Oxygen Delivery Me thod Room Air Room Air 11/07/21 23:00 11/08/21 00:48 11/08/21 00:48 Temperature 97.6 F Pulse Rate 103 H Pulse Rate [Right Pulse Oximeter] 98 103 H Respiratory Rate 18 20 Blood Pressure [Le ft Arm] 129/91 H Pulse Oximetry 97 Oxygen Delivery Me thod Room Air 11/08/21 03:00 11/08/21 07:45 11/08/21 11:00 Temperature 98 F 97.9 F 97.7 F Pulse Rate Pulse Rate [Right Pulse Oximeter] 100 85 80 Respiratory Rate 18 16 18 Blood Pressure [Le ft Arm] 150/110 H 122/79 148/99 H Pulse Oximetry 96 94 98 Oxygen Delivery Me thod Room Air Room Air Room Air 11/08/21 07:14 Temperature Pulse Rate 87 Pulse Rate [Right Pulse Oximeter] Respiratory Rate Blood Pressure [Le ft Arm] Pulse Oximetry Oxygen Delivery Me thod Documenting provider has reviewed patient's vital signs: yes DS: Data Data Completed and Pending Labs on day of discharge: Labs from last 24 hours 11/08/21 11/08/21 11/07/21 06:05 06:05 13:30 WBC 10.89 RBC 3.95 L Hgb 12.2 Hct 37.0 MCV 94 MCH 31 MCHC 33 RDW Coeff of Ariel 15.0 Plt Count 194 Neut % (Auto) 80.6 H Lymph % (Auto) 8.7 L Love % (Auto) 9.9 Eos % (Auto) 0.0 Baso % (Auto) 0.1 Neut # (Auto) 8.80 H Lymph # (Auto) 0.90 Love # (Auto) 1.10 H Eos # (Auto) 0.00 Baso # (Auto) 0.01 Abs Immat Gran (auto) 0.08 Sodium 140 136 Potassium 4.5 4.1 Chloride 112 109 Carbon Dioxide 19 L 16 L BUN 47 H 50 H Creatinine 1.3 1.2 Estimated Creat Clear 31.77 34.42 Estimated GFR 41 45 Glucose 158 H 171 H Calcium 7.7 L 7.0 L Magnesium 2.9 H Troponin I 0.01 Discharge Plan Discharge Disposition: Home, Self-Care Date of Admission: 11/06/21 20:52 Primary Care Provider: Provider,Not a Local Condition: Stable Anticipated Discharge Date/Time: 11/08/21 13:00 Discharge Medications: Continued bupropion HCl alendronate Spiriva with HandiHaler albuterol sulfate 90 mcg/actuation HFA aerosol inhaler 2 puff INHALATION .Q6H PRN (Reason: shortness of breath or wheezing) atorvastatin 80 mg tablet 80 mg PO HS Label Comments: TAKE 1 TABLET BY MOUTH DAILY AT BEDTIME. budesonide-formoterol [Symbicort] 160-4.5 mcg/actuation HFA aerosol inhaler 2 puff INHALATION BID bupropion HCl 150 mg tablet extended release 24 hr 150 mg PO DAILY Label Comments: TAKE 1 TABLET BY MOUTH EVERY DAY losartan 50 mg tablet 50 mg PO DAILY Label Comments: TAKE 1 TABLET BY MOUTH EVERY DAY metoprolol succinate 50 mg tablet extended release 24 hr 50 mg PO BID Label Comments: TAKE 1 TABLET BY MOUTH TWO TIMES A DAY FOR HIGH BLOOD PRESSURE Spiriva with HandiHaler 18 mcg capsule, w/inhalation device 1 cap INHALATION DAILY trazodone 50 mg tablet 50 mg PO HS Label Comments: TAKE 1 TABLET BY MOUTH EVERYDAY AT BEDTIME venlafaxine 150 mg capsule,extended release 24hr 150 mg PO DAILY Label Comments: TAKE 1 CAPSULE BY MOUTH EVERY DAY esomeprazole magnesium 40 mg capsule,delayed release(DR/EC) 40 mg PO DAILY Label Comments: TAKE 1 CAPSULE BY MOUTH EVERY DAY alendronate 70 mg tablet 70 mg PO .WEEKLY Discontinued atorvastatin trazodone venlafaxine losartan Discharge Orders: Discharge Order (Routine); Ordered 11/08/21 Ordered By: Iggy Phipps Patient Education: A-fib (Atrial Fibrillation) (DC), Acute Kidney Injury (DC), Enteritis (DC) Activity Level: Activity as Tolerated Discharge Diet: Regular Follow Up Appointments: Provider,Not a Local [Primary Care Provider] - (See your doctor in the next 1-2 weeks for recheck of your stomach problems and your heart problems) Forms: DrEd Online Doctor Info Instructions Discharge Comments: Send a copy hospital records to [facility]
--- NOTE | 2021-11-08 13:10 | RESP.RT ---
Pt cardioverted this AM. Placed PT on 4L NC 20 minutes before procedure. Left on during her recovery. SPO2 maintained at 100%. See nursing notes for vitals and med administration
[2021-11-08] MEDS: LOPERAMIDE HCL 2 MG CAPSULE PO (15:08)
--- NOTE | 2021-11-08 16:54 | PC.NURSE ---
shift note: pt up sba/walker. pt had 1 sm loose BM and 1 lg loose BM. pt received lomotil prior to dc. No further stools 1 hour after lomotil given. IV dc'd intact lt wrist. LS remain clr. HR regular. Reviewed dc instructions and copies sent with pt. Pt agreed to contact PCP for f/u as ordered in dc instructions. Belongings reviewed and sent with pt at dc.
== END 2021-11-08 16:53 | disposition home or self-care (01) ==
LOC: ED 20:01 → MEDSURG 20:55
PROVIDERS: Family Medicine; Admitting Provider Family Medicine; Emergency Provider Family Medicine; Visit Provider Family Medicine
DX: K52.9 Noninfective gastroenteritis and colitis, unspecified (principal); E86.0 Dehydration; E87.2 Acidosis; N17.9 Acute kidney failure, unspecified; I48.91 Unspecified atrial fibrillation; I12.9 Hypertensive chronic kidney disease with stage 1 through stage 4 chronic kidney disease, or unspecified chronic kidney disease; N18.9 Chronic kidney disease, unspecified; J44.9 Chronic obstructive pulmonary disease, unspecified; G47.33 Obstructive sleep apnea (adult) (pediatric); I25.10 Atherosclerotic heart disease of native coronary artery without angina pectoris; R00.0 Tachycardia, unspecified; Z86.79 Personal history of other diseases of the circulatory system; Z87.891 Personal history of nicotine dependence; R79.89 Other specified abnormal findings of blood chemistry; H35.30 Unspecified macular degeneration; R25.2 Cramp and spasm; R53.1 Weakness; R10.32 Left lower quadrant pain
CPT/HCPCS: 36415; 74176; 80048; 80076; 81001; 82077; 83605; 83735; 84484; 85025; 85651; 86140; 87045; 87046; 87086; 87158; 87427; 87493; 87631; 92960; 93005; 93306; 94640; 96361; 96365; 96366; 96372; 96375; 96376; 97116; 97161; 97165; 97530; 97535; 99284; G0378; A9270; C9113; G0379; J1335; J1650; J2930; J7030; J7120; J7626